=== PATIENT | female | born 1990 | race Caucasian/White ===

== ENCOUNTER 2017-03-20 19:16 | Emergency (ER) | payer MEDICAID ==
[~2017-03-20] VITALS: Ht 165.1 cm; Wt 70.9 kg
[2017-03-20 19:29] VITALS: Ht 165.1 cm; Wt 70.9 kg
[2017-03-20] MEDS ORDERED: ACETAMINOPHEN 500 MG TAB PO STA (22:12)
--- NOTE | 2017-03-20 22:49 | RADRPT ---
PROCEDURE: US OB. CLINICAL INDICATION: And the with abdominal pain. TECHNIQUE: Transabdominal and transvaginal sonographic evaluation of the pelvis using josue scale an d color Doppler imaging was performed. COMPARISON: None available. FINDINGS: A single intrauterine gestational sac with a yolk sac is identified. No pole is present. The mean sac diameter equals 1.21 cm. The estimated gestational age equals 5 weeks 6 days by ultrasound criteria. No subchorionic hemorrhage is identified. Right ovary: 3.8 x 2.1 x 2.3 cm. Normal flow. Cyst with intermediate echogenic contents measuring 2 .6 cm. Left ovary: 3.0 x 1.2 x 1.6 cm. Normal flow and echogenicity Small volume of free fluid within the cul-de-sac. IMPRESSION: 1. Single intrauterine with a yolk sac but no pole and an estimated gestational age of 5 weeks 6 days by ultrasound criteria. Estimated date of delivery of 11/14/2017. 2. Small volume of free fluid in the cul-de-sac, which is nonspecific. 3. Cystic right ovarian lesion measuring 2.6 cm with intermediate echogenic internal contents, whic h may reflect a hemorrhagic cyst or endometrioma. Attention on follow-up is recommended. RPTAT: HLBP .Dwayne Durham MD, Date Time Electronically viewed and signed by .Dwayne Durham MD, MD on 03/20/2017 22:48 .P/
[2017-03-20 22:53] LABS: ABNORMAL IP MESSAGE 1; BASOPHILS % 0.2 % (0.0-2.0); EOSINOPHILS # 0.3 10^3/ul (0.0-0.5); EOSINOPHILS % 2.4 % (0.0-7.0); HEMATOCRIT 35.8 % (37.0-47.0); HEMOGLOBIN 12.5 g/dl (12.0-16.0); LYMPHOCYTES # 3.2 10^3/ul (0.8-2.9); LYMPHOCYTES % 25.6 % (15.0-51.0); MEAN CORPUSCULAR HEMOGLOBIN 32.2 pg (29.0-33.0); MEAN CORPUSCULAR HGB CONC 34.9 g/dl (32.0-37.0); MEAN CORPUSCULAR VOLUME 92.3 fl (82.0-101.0); MEAN PLATELET VOLUME 13.7 fl (7.4-10.4); MONOCYTE # 0.9 10^3/ul (0.3-0.9); MONOCYTES % 7.5 % (0.0-11.0); NEUTROPHIL # 7.9 10^3/ul (1.6-7.5); NEUTROPHILS % 63.9 % (39.0-77.0); PLATELET COUNT 153 10^3/UL (140-415); RED BLOOD COUNT 3.88 10^6/ul (4.20-5.40); RED CELL DISTRIBUTION WIDTH 11.9 % (11.5-14.5); WHITE BLOOD COUNT 12.3 10^3/ul (4.8-10.8)
[2017-03-20 23:08] LABS: ADD UMIC NO; UR ASCORBIC ACID 20 mg/dL (NEGATIVE); UR BILIRUBIN (Dip) NEGATIVE (NEGATIVE); UR BLOOD (Dip) NEGATIVE (NEGATIVE); UR CLARITY CLEAR (CLEAR); UR COLOR YELLOW (YELLOW); UR GLUCOSE (Dip) NEGATIVE (NEGATIVE); UR KETONES (Dip) NEGATIVE (NEGATIVE); UR LEUKOCYTE ESTERASE (Dip) NEGATIVE Leu/ul (NEGATIVE); UR NITRITE (Dip) NEGATIVE (NEGATIVE); UR SPECIFIC GRAVITY (Dip) 1.024 (1.003-1.030); UR TOTAL PROTEIN (Dip) NEGATIVE (NEGATIVE); UR UROBILINOGEN (Dip) NEGATIVE (NEGATIVE)
[2017-03-20 23:08] LABS: ALBUMIN 4.5 g/dl (3.3-4.9); ALBUMIN/GLOBULIN RATIO 1.4; BILIRUBIN,INDIRECT 0.3 mg/dl (0-1.1); BILIRUBIN,TOTAL 0.3 mg/dl (0.2-1.3); CALCIUM 9.2 mg/dl (8.4-10.2); CREATININE 0.74 mg/dl (0.44-1.00); POSITIVE DIFF @See below; POTASSIUM 3.1 mmol/L (3.5-5.1); TOTAL PROTEIN 7.7 g/dl (6.1-8.1)
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
[2017-03-20] MEDS ORDERED: POTASSIUM CHLORIDE (SR) 20 MEQ TAB PO STA (23:50)
[2017-03-20] MEDS ORDERED: ACET500C5 PO (23:56)
[2017-03-20] MEDS ORDERED: PREN1TAB79 PO (23:57)
== END 2017-03-21 00:07 | disposition home or self-care (01) ==
LOC: FTE 19:16
DX: R10.9 Unspecified abdominal pain (principal); R10.2 Pelvic and perineal pain; Z3A.01 Less than 8 weeks gestation of pregnancy
CPT/HCPCS: 36415; 76801; 76817; 80053; 81003; 84702; 85025; 86900; 86901; Z7502; Z7610

== ENCOUNTER 2018-09-12 13:44 | Emergency (ER) | payer MEDICAID, OTHER ==
[~2018-09-12] VITALS: Ht 160 cm; Wt 74.8 kg
[~2018-09-12 13:44] MED LIST: ACET500C5 PO; PREN1TAB79 PO
[2018-09-12 13:55] VITALS: BP 117/68; PULSE 93; RESP 16; Ht 160 cm; Wt 74.8 kg
[2018-09-12] MEDS ORDERED: KETOROLAC 60 MG INJ IM STA (14:11)
[2018-09-12] MEDS ORDERED: ONDANSETRON (ODT) 4 MG TAB ODT STA (14:11)
--- NOTE | 2018-09-12 14:35 | ERD ---
ER Documentation Chief Complaint Chief Complaint INTERMITTENT EIPGASTRIC PAIN W/ NAUSEA HPI 28-year-old female presented with complaint of intermittent epigastric pain with associated nausea. States that the pain started intensity this morning. Denies any history of epigastric pain. States that she is not had a history of gallst ones. Also states she has had some diarrhea. Denies any vomiting, constipation, fevers, flank pain, dysuria, hematuria. Denies allergies. Denies medical problems. ROS All systems reviewed and are negative except as per history of present illness. Medications Home Meds Active Scripts Vit W-Ca,Fe,FA(<1 mg) ( Vitamins) 1 Each Tablet, 1 EACH PO DAILY for 30 Days, TAB Prov:JESIKA QUIROZ F 03/20/17 Acetaminophen* (Tylophen*) 500 Mg Capsule, 1 CAP PO Q6H PRN for PAIN AND OR ELEVATED TEMP, #20 CAP Prov:EUGENIOILABANJESIKA F 03/20/17 Allergies Allergies: Coded Allergies: No Known Allergy (Unverified , 03/20/17) PMhx/Soc Hx Alcohol Use: No Hx Substance Use: No Hx Tobacco Use: No Smoking Status: Never smoker FmHx Family History: No diabetes, No coronary disease, No other Physical Exam Vitals Vital Signs Date Temp Pulse Resp B/P (MAP) Pulse Ox O2 O2 Flow FiO2 Time Delivery Rate 09/12/18 100.1 93 16 117/68 95 13:55 (84) Physical Exam Const: No acute distress Head: Atraumatic Eyes: Normal Conjunctiva ENT: Normal External Ears, Nose and Mouth. Neck: Full range of motion. No meningismus. Resp: Clear to auscultation bilaterally Cardio: Regular rate and rhythm, no murmurs Abd: Tenderness palpation in the epigastric area without guarding or rigidity. Negative Ho's. Negative negative McBurney's. Skin: No petechiae or rashes Back: No midline or flank tenderness Ext: No cyanosis, or edema Neur: Awake and alert Psych: Normal Mood and Affect Result Diagram: 09/12/18 1428 09/12/18 1428 Results 24 hrs Laboratory Tests Test 09/12/18 14:28 09/12/18 14:30 White Blood Count 16.2 10^3/ul Red Blood Count 4.46 10^6/ul Hemoglobin 13.7 g/dl Hematocrit 41.2 % Mean Corpuscular Volume 92.4 fl Mean Corpuscular Hemoglobin 30.7 pg Mean Corpuscular Hemoglobin Concent 33.3 g/dl Red Cell Distribution Width 11.9 % Platelet Count 172 10^3/UL Mean Platelet Volume 13.8 fl Immature Granulocytes % 0.300 % Neutrophils % 86.9 % Lymphocytes % 5.8 % Monocytes % 6.4 % Eosinophils % 0.4 % Basophils % 0.2 % Nucleated Red Blood Cells % 0.0 /100WBC Immature Granulocytes # 0.050 10^3/ul Neutrophils # 14.1 10^3/ul Lymphocytes # 0.9 10^3/ul Monocytes # 1.0 10^3/ul Eosinophils # 0.1 10^3/ul Basophils # 0.0 10^3/ul Nucleated Red Blood Cells # 0.0 10^3/ul Urine Color YELLOW Urine Clarity SLIGHTLY CLOUDY Urine pH 5.0 Urine Specific [place] 1.025 Urine Ketones NEGATIVE mg/dL Urine Nitrite NEGATIVE mg/dL Urine Bilirubin NEGATIVE mg/dL Urine Urobilinogen NEGATIVE mg/dL Urine Leukocyte Esterase TRACE Zina/ul Urine Microscopic RBC 2 /HPF Urine Microscopic WBC 11 /HPF Urine Squamous Epithelial Cells FEW /HPF Urine Hemoglobin NEGATIVE mg/dL Urine Glucose NEGATIVE mg/dL Urine Total Protein NEGATIVE mg/dl Sodium Level 142 mmol/L Potassium Level 3.7 mmol/L Chloride Level 105 mmol/L Carbon Dioxide Level 26 mmol/L Anion Gap 11 Blood Urea Nitrogen 12 mg/dl Creatinine 0.74 mg/dl Est Glomerular Filtrat Rate mL/min > 60 mL/min Glucose Level 111 mg/dl Calcium Level 9.1 mg/dl Total Bilirubin 0.3 mg/dl Direct Bilirubin 0.00 mg/dl Indirect Bilirubin 0.3 mg/dl Aspartate Amino Transf (AST/SGOT) 21 IU/L Alanine Aminotransferase (ALT/SGPT) 13 IU/L Alkaline Phosphatase 100 IU/L Total Protein 8.1 g/dl Albumin 4.5 g/dl Globulin 3.60 g/dl Albumin/Globulin Ratio 1.25 Lipase 99 U/L POC Beta HCG, Qualitative NEGATIVE Current Medications Medications Dose Sig/Cassia Start Time Status Last (Trade) Ordered Route PRN Stop Time Admin Dose Reason Admin Ketorolac 60 mg ONCE STAT 09/12/18 DC 09/12/18 Tromethamine IM 14:11 14:34 (Toradol) 09/12/18 14:15 Ondansetron 4 mg ONCE STAT 09/12/18 DC 09/12/18 HCl (Zofran ODT 14:11 14:32 Odt) 09/12/18 14:15 Procedures/MDM DIAGNOSTIC IMAGING REPORT Patient: CRISTINO ROSALES : 1990 Age: 28 Sex: F MR #: [id number] DOS: 09/12/18 1411 Ordering MD: DOMINIQUE THURMAN Location: [facility] Room/Bed: PROCEDURE: US Abdomen (right upper quadrant). CLINICAL INDICATION: Abdominal pain TECHNIQUE: Multiple real-time longitudinal and transverse images of the right upper quadrant of the abdomen were acquired utilizing a curved array transducer. Images were reviewed on a high-resolution PACS workstation. COMPARISON: None FINDINGS: The liver is normal in size and echogenicity without focal mass or intrahepatic biliary dilatation. The gallbladder is normal. There is no pericholecystic fluid or gallbladder wall thickening or gallstones. No intra or extrahepatic biliary dilatation is seen. The common bile duct measures 2.8 mm in maximal dimension. The visualized portions of the pancreas are unremarkable with obscuration of the tail of the pancreas. No free fluid is identified. The right kidney measures 11.1 cm in length. There is normal echogenicity within the right kidney. There is no perinephric fluid collection. No hydronephrosis, mass, or calculus is seen. IMPRESSION: Unremarkable right upper quadrant ultrasound. RPTAT: JJ .Bryant Bates MD, MD Date Time Electronically viewed and signed by .Bryant Bates MD, on 09/12/2018 15:23 .A/ CC: DOMINIQUE THURMAN [id number] EKG: Rate/Rhythm: Normal Sinus Rhythm QRS, ST, T-waves: No changes consistent w/ acute ischemia Impression: No evidence of ischemia or arrhythmia MDM: Gallbladder ultrasound was within normal limits as well as EKG. However patient had a white count and neutrophilia in the CBC. At time of discharge patient stated that her abdominal pain did feel much better than before but was still there although not as acute. Given the results of labs as well as physical exam I discussed with patient the option of doing a an abdominal CT now versus returning 8 hours for follow-up exam. I discussed with her the risks and benefits of each option. Patient stated that she needed to go home to her [id number] child so did not want to wait in the ER and confirm that she would come back in 8 hours for follow-up exam. I emphasized the patient the importance of returning as she might have an acute condition such as appendicitis which could have serious health complications of that addressed. Patient confirmed that she understood and is going to return in 8 hours. I discussed this discharge plan with my supervising physician Dr. Olguin and he agreed to this plan. At this time I have low suspicion for acute abdomen, AR, AAA, acute appendicitis, cholecystitis, bowel obstruction, or any other emergent condition. At this time, patient is stable for discharge and outpatient management. I have discussed with the patient the possibility of needing to see a specialist for further workup and imaging studies if symptoms persist. I have instructed the patient to promptly return to the ER for any new or worsening symptoms including but not limited to increased pain, fever, nausea, vomiting, weakness or LOC. The patient and/or family expressed understanding of and agreement with this plan. All questions were answered. Home care instructions were provided. DISCLAIMER: Inadvertent spelling and grammatical errors are likely due to EHR/dictation software use and do not reflect on the overall quality of patient care. Also, please note that the electronic time recorded on this note does not necessarily reflect the actual time of the patient encounter. Departure Diagnosis: Primary Impression: Epigastric pain Condition: Stable DOMINIQUE THURMAN Sep 12, 2018 14:35
== END 2018-09-12 16:19 | disposition home or self-care (01) ==
LOC: FTE 13:44
DX: R10.13 Epigastric pain (principal); R11.0 Nausea
CPT/HCPCS: 76705; 80053; 81001; 81025; 83690; 85025; 87086; 93005; 96372; J1885; Z7502; Z7610

== ENCOUNTER 2018-09-12 23:01 | Emergency (ER) | payer MEDICAID, OTHER ==
[~2018-09-12] VITALS: Ht 160 cm; Wt 74.8 kg
[2018-09-12 23:03] VITALS: Ht 160 cm; Wt 74.8 kg
[2018-09-13] MEDS ORDERED: IBUPROFEN 800 MG TAB PO ONE (01:00)
--- NOTE | 2018-09-13 01:00 | ERD ---
ER Documentation Chief Complaint Chief Complaint AP since AM w/ fever, seen & was told to come back 8 hours later. no n/v HPI This is a very pleasant 28-year-old female returns to the emergency room for recheck. The patient was seen in the emergency room approximately 10 hours ago for abdominal pain. The patient had a low-grade fever. She had leukocytosis of 16 and was describing mild epigastric abdominal discomfort. No recent travel sick contacts or antibiotics. Patient had ultrasound of the gallbladder that was unremarkable. Patient had no right lower quadrant abdominal pain and the decision was to return in 8 hours for recheck. Patient states complete resolution of symptoms and she states that she feels fine. Patient has had some mild anorexia today and mild nausea earlier today but otherwise feels at her b aseline currently. She denies any migratory pain and no pain to the right lower quadrant of the abdomen. No dysuria urgency or frequency. No flank pain. Patient does have a fever at triage. ROS All systems reviewed and are negative except as per history of present illness. Medications Home Meds Active Scripts Vit W-Ca,Fe,FA(<1 mg) ( Vitamins) 1 Each Tablet, 1 EACH PO DAILY for 30 Days, TAB Prov:JESIKA QUIROZ F 03/20/17 Acetaminophen* (Tylophen*) 500 Mg Capsule, 1 CAP PO Q6H PRN for PAIN AND OR ELEVATED TEMP, #20 CAP Prov:EUGENIOILABANKARMAAR F 03/20/17 Allergies Allergies: Coded Allergies: No Known Allergy (Unverified , 03/20/17) PMhx/Soc Medical and Surgical Hx: pt denies Medical Hx, pt denies Surgical Hx Hx Alcohol Use: No Hx Substance Use: No Hx Tobacco Use: No Smoking Status: Never smoker FmHx Family History: No diabetes Physical Exam Vitals Vital Signs Date Temp Pulse Resp B/P (MAP) Pulse Ox O2 O2 Flow FiO2 Time Delivery Rate 09/12/18 101.4 73 16 137/61 97 23:03 (86) Physical Exam General: Well developed, well nourished, no acute distress Head: Normocephalic, atraumatic. Eyes: Pupils equally reactive, EOM intact ENT: Moist mucous membranes Neck: Supple, no lymphadenopathy Respiratory: Lungs clear bilaterally, no distress Cardiovascular: RRR, no murmurs, rubs, or gallops Abdominal: Soft, non-tender, non-distended, no peritoneal signs no tenderness to the right lower quadrant, no tenderness to McBurney's point, negative Ho sign, negative Rovsing's : Deferred MSK: No edema, no unilateral swelling, 5/5 strength Neurologic: Alert and oriented, moving all extremities, normal speech, no focal weakness, no cerebellar signs Skin: No rash Psych: Normal mood Results 24 hrs Current Medications Medications Dose Sig/Cassia Start Time Status Last (Trade) Ordered Route PRN Stop Time Admin Dose Reason Admin Ibuprofen 800 mg ONCE ONCE 09/13/18 (Motrin) PO 01:00 09/13/18 01:01 Procedures/MDM LAB INTERPRETATION: I reviewed the laboratory testing from visit earlier today MEDICAL DECISION MAKING: The patient returns for repeat evaluation. Will the patient does have a fever, some mild anorexia and mild nausea earlier today she has complete resolution of symptoms. Patient has a very benign abdominal examination with no focal tenderness whatsoever. Patient had multiple exams and palpation of the right lower quadrant that did not elicit any tenderness, no rebound, no guarding. Unclear etiology as to the patient's fever but she had a thorough work-up showin g no evidence of acute process. The patient has no cough no shortness of breath. The patient has no dysuria urgency or frequency. Urinalysis was not convincing for UTI. Based on my findings this seems unlikely to be acute appendicitis. We did however discuss the possibility of early appendicitis. We discussed and I did offer CT imaging of the abdomen pelvis. However we discussed risk benefits and alternatives as well as a watchful waiting approach. Given that the patient has absolutely no symptoms currently other than a fever, she has no tenderness to the right lower quadrant, and has had serial examinations over 10-hour timeframe the diagnosis of acute appendicitis seems to be unlikely in the risks of radiation may outweigh the benefits at this time. The patient would like to defer CT imaging. We had an in-depth conversation about return precautions and the patient verbalized understanding feels very comfortable with this plan. We will plan on discharge. Antipyretics given here in the emergency room. CONSULTATION: None DISPOSITION PLAN: The patient does not have an identifiable emergent medical condition that warrants inpatient hospitalization at this time. The patient is deemed safe for discharge with outpatient follow-up. We discussed follow up with the patient's primary care doctor within 24 to 48 hours as needed. We also discussed return to the emergency room for worsening symptoms or worsening condition. Outpatient referral: None required Discharge Medications: None required Departure Diagnosis: Primary Impression: Generalized abdominal pain Additional Impression: Fever Fever type: unspecified Qualified Codes: R50.9 - Fever, unspecified Condition: Good Patient Instructions: Abdominal Pain, Unknown Cause, (Female), Fever Control (Adult) Additional Instructions: Call your primary care doctor TOMORROW for an appointment during the next 2-3 days.See the doctor sooner or return here if your condition worsens before your appointment time. Please return for persistent fevers, abdominal pain that moves or is located in the right lower quadrant ANEESH PARK MD Sep 13, 2018 01:00
[2018-09-13 01:06] VITALS: BP 122/64; PULSE 77; RESP 16
== END 2018-09-13 01:24 | disposition home or self-care (01) ==
LOC: E/R 23:01
DX: R10.84 Generalized abdominal pain (principal); R50.9 Fever, unspecified
CPT/HCPCS: Z7502; Z7610; 99282